=== PATIENT | male | born 1965 | race Caucasian/White ===

== ENCOUNTER 2020-10-30 17:32 | Emergency (ER) | payer SELFPAY ==
[~2020-10-30] VITALS: Ht 180.3 cm; Wt 68.0 kg
[2020-10-30 17:32] VITALS: BP 127/76
--- NOTE | 2020-10-30 17:32 | NUR ---
Sonny BANKS via gurney to bed 01.
--- NOTE | 2020-10-30 17:48 | NUR ---
DR. PABON BEDSIDE EVALUATING PT
--- NOTE | 2020-10-30 17:48 | NUR ---
55 MALE BIBA DUE TO C/O CONFUSION AND EPISODES OF APHASIA X1 WEEK THAT HAS BEEN PROGRESSIVELY WORSENING OVER THE LAST WEEK. HX GLAUCOMA NKA
--- NOTE | 2020-10-30 18:09 | NUR ---
XRAY BEDSIDE WITH PT
--- NOTE | 2020-10-30 18:17 | NUR ---
LAB BEDSIDE COLLECTING BLOOD WORK
--- NOTE | 2020-10-30 18:20 | NUR ---
PT PROVIDED WITH URINE CUP AND AMBULATED TO RESTROOM. GAIT STEADY
--- NOTE | 2020-10-30 18:23 | NUR ---
PT AMBULATED TO ROOM 1. GAIT STEADY. UA COLLECTED AND HANDED OVER TO EQUITY RESEARCH ANALYST BEDSIDE
[2020-10-30 18:32] LABS: BASOPHILS % (AUTO) 0.8 % (0.0-2.0); EOSINOPHILS # (AUTO) 0.3 K/uL (0-0.4); EOSINOPHILS % (AUTO) 5.9 % (0.0-4.0); HEMATOCRIT 45.5 % (36-52); HEMOGLOBIN 15.2 g/dL (12.0-18.0); LYMPHOCYTES # (AUTO) 1.9 K/uL (2.0-11.5); LYMPHOCYTES % (AUTO) 36.9 % (20.5-51.1); MEAN CORPUSCULAR HEMOGLOBIN 31 pg (27-31); MEAN CORPUSCULAR HGB CONC 33 g/dL (33-37); MEAN CORPUSCULAR VOLUME 92.8 fL (80-94); MONOCYTES # (AUTO) 0.4 K/uL (0.8-1.0); MONOCYTES % (AUTO) 8.1 % (1.7-9.3); NEUTROPHILS # (AUTO) 2.5 K/uL (1.8-7.7); NEUTROPHILS % (AUTO) 48.3 % (42.2-75.2); PLATELET COUNT (AUTO) 190 K/uL (140-450); RED CELL DISTRIBUTION WIDTH 13.1 % (11.6-13.7); WHITE BLOOD COUNT (AUTO) 5.3 K/uL (4.8-10.8)
[2020-10-30 18:40] LABS: APPEARANCE,URINE CLEAR (CLEAR); BILIRUBIN,URINE NEGATIVE (NEGATIVE); BLOOD, URINE NEGATIVE (NEGATIVE); COLOR,URINE YELLOW (YELLOW); LEUKOCYTE ESTERASE ,URINE NEGATIVE (NEGATIVE); NITRITE, URINE NEGATIVE (NEGATIVE); UGLUCOSE NEGATIVE (NEGATIVE)
[2020-10-30 18:51] LABS: ALBUMIN 3.6 g/dL (3.4-5.0); ANION GAP 9.9 (8-16); CREATININE 1.1 mg/dL (0.6-1.3); POTASSIUM 3.9 mmol/L (3.5-5.1)
[2020-10-30] MEDS ORDERED: OSMITROL 25% 12.5 GM/50 ML VIAL IV ONE (19:00)
[2020-10-30] MEDS ORDERED: DEXAMETHASONE 10 MG/ML VIAL IVP ONE (19:00)
[2020-10-30] MEDS ORDERED: PHENYTOIN 1,000 MG in NACL 0.9% 100 ML IV ONE (19:00)
--- NOTE | 2020-10-30 19:12 | NUR ---
DR. PABON BEDSIDE SPEAKING WITH FAMILY
--- NOTE | 2020-10-30 19:24 | NUR ---
Pt report given to JOSÉ ESPINOZA. Transfer of care at this time.
--- NOTE | 2020-10-30 19:30 | NUR ---
RECEIVED IN BED 1 AWAKE AND ALERT. DENIES PAIN OR DISCOMFORT. HAND PATTERN CHANGER AND REPAIRER ARE STRONG AND EQUAL. NEMO. FAMILY AT BEDSIDE
--- NOTE | 2020-10-30 20:19 | NUR ---
[facility] ARRIVED AT BEDSIDE. AND DAUGHTER AT BEDSIDE.
--- NOTE | 2020-10-30 20:20 | NUR ---
REPORT CALLED TO JOSÉ FORMAN [place] [facility] [place]
--- NOTE | 2020-10-30 20:25 | NUR ---
[facility] HERE FOR TRANSPORT
--- NOTE | 2020-10-30 20:35 | NUR ---
TRANSFERED VIA [facility]/ [facility]. CHART COPIED AND SENT
--- NOTE | 2020-10-30 20:36 | NUR ---
[facility] TRANSPORTED PATIENT FROM [facility] TO [facility]
== END 2020-10-30 20:36 | disposition short-term general hospital (02) ==
LOC: MED 17:32
DX: D49.6 Neoplasm of unspecified behavior of brain (principal); G93.5 Compression of brain
CPT/HCPCS: 36415; 70450; 71045; 80053; 81003; 84484; 85025; 93005; 96374; 96375; 99291; J1100; J2150